=== PATIENT | male | born 1975 | race Caucasian/White ===

== ENCOUNTER → 2017-06-11 | Outpatient (CLI) | payer BC ==
--- NOTE | 2017-06-11 11:51 | XR ---
EXAMINATION TYPE: XR KUB DATE OF EXAM: 06/11/2017 11:42 AM CLINICAL HISTORY: Hematuria TECHNIQUE: Two supine KUB images of the abdomen are obtained. COMPARISON: None. FINDINGS: 2-3 small rounded density left pelvis could reflect phleboliths or distal ureter calculi. L argest measures 4 mm. No additional nephrolithiasis is clearly seen. There is overall nonobstructive bowel gas pattern. Visualized osseous structures are intact. Lung bas es are not included. IMPRESSION: As above. Consider CT correlation.
== END | disposition home or self-care (01) ==
LOC: RADXRMAIN 11:17
PROVIDERS: ATTEND Urology
DX: R31.9 Hematuria, unspecified (principal)
CPT/HCPCS: 74018